=== PATIENT | male | born 1995 | race Hispanic/Latino ===

== ENCOUNTER 2020-04-24 19:29 | Emergency (ER) | payer OTHER ==
[~2020-04-24] VITALS: Ht 167.6 cm; Wt 113.9 kg
[2020-04-24] MEDS ORDERED: LORAZEPAM 1 MG TAB PO ONE (20:00)
[2020-04-24] MEDS ORDERED: LORAZEPAM 0.5 MG TAB ONE (20:01)
[2020-04-24] MEDS ORDERED: XANAX0.5 MG PO (20:26)
[2020-04-24] MEDS ORDERED: LORAZEPAM 0.5 MG TAB PO ONE (20:30)
[2020-04-24 20:35] VITALS: BP 170/115
== END 2020-04-24 20:35 | disposition home or self-care (01) ==
LOC: FSED 19:50
DX: R00.2 Palpitations (principal); F41.9 Anxiety disorder, unspecified
CPT/HCPCS: 93005; 99283